=== PATIENT | male | born 1955 | race Caucasian/White ===

== ENCOUNTER 2016-08-07 17:53 | Emergency (ER) | payer MEDICARE, OTHER ==
[2016-08-07 18:53] LABS: BILIRUBIN NEGATIVE (NEGATIVE); BLOOD 3+ Ery/uL (NEGATIVE); CLARITY HAZY (CLEAR); COLOR AMBER (YELLOW); GLUCOSE (U) NORMAL (NORMAL); KETONE (U) NEGATIVE (NEGATIVE); LEUKOCYTES NEGATIVE Leu/uL (NEGATIVE); NITRITE NEGATIVE (NEGATIVE); PROTEIN 2+ mg/dL (NEGATIVE); SPECIFIC GRAVITY >=1.030 (1.001-1.030)
[2016-08-07 18:56] LABS: BASOPHIL 0.3 % (0-2); EOSINOPHIL 0.7 % (0-5); HGB 15.1 g/dl (13.2-18.0); LYMPHOCYTE 14.9 % (15-48); MCH 31.1 pg (25.0-31.0); MCHC 34.3 g/dL (32.0-36.0); MCV 90.5 fL (78.0-100.0); NEUTROPHIL 74.1 % (41-80); PLT 203 K/uL (150-400); RBC 4.86 M/uL (4.70-6.00); RDW 13.7 % (11.5-14.0)
[2016-08-07 18:58] LABS: BACTERIA TRACE; URINARY RBC TNTC
[2016-08-07 19:03] LABS: ALBUMIN 4.3 g/dL (3.4-4.8); BILIRUBIN - TOTAL 0.3 mg/dL (0.1-1.0); GLOBULIN (CALCULATION) 2.9 g/dL (2.2-4.2); POTASSIUM 3.9 mmol/L (3.5-5.1); TOTAL PROTEIN 7.2 g/dL (6.4-8.3)
== END 2016-08-07 20:14 | disposition home or self-care (01) ==
LOC: FER 17:53
PROVIDERS: Emergency Medicine
DX: N13.2 Hydronephrosis with renal and ureteral calculous obstruction (principal); D86.9 Sarcoidosis, unspecified; Z84.1 Family history of disorders of kidney and ureter; Z88.0 Allergy status to penicillin; Z79.52 Long term (current) use of systemic steroids; Z79.82 Long term (current) use of aspirin; Z79.51 Long term (current) use of inhaled steroids
CPT/HCPCS: 36415; 80053; 81001; 85025; J1885; J2405

== ENCOUNTER 2020-10-09 10:17 | Emergency (ER) | payer MEDICARE, OTHER ==
[2020-10-09 11:29] LABS: BASOPHIL 0.3 % (0-2); EOSINOPHIL 0.2 % (0-7); HCT 38.6 % (42.0-52.0); HGB 13.3 g/dl (13.2-18.0); LYMPHOCYTE 7.6 % (15-48); MCH 31.9 pg (25.0-31.0); MCHC 34.5 g/dL (32.0-36.0); MCV 92.6 fL (78.0-100.0); MONOCYTE 9.3 % (0-12); NEUTROPHIL 82.3 % (41-80); NRBC 0; PLT 151 K/uL (150-400); RBC 4.17 M/uL (4.70-6.00); RDW 13.2 % (11.5-14.0); WBC 9.5 K/uL (4.0-10.5)
[2020-10-09 11:53] LABS: BUN/CREAT RATIO (CALC) 22.1 RATIO; CREATININE 0.77 mg/dL (0.67-1.17); URIC ACID 4.9 mg/dL (3.5-7.2)
== END 2020-10-09 13:13 | disposition home or self-care (01) ==
LOC: FER 10:17
PROVIDERS: Emergency Medicine
DX: M19.032 Primary osteoarthritis, left wrist (principal); Z88.0 Allergy status to penicillin; Z79.899 Other long term (current) drug therapy; Z87.81 Personal history of (healed) traumatic fracture
CPT/HCPCS: 36415; 73110; 80048; 84550; 85025; 86038; 86140; 86431; 96372; J1885; J2930

== ENCOUNTER 2021-10-10 10:26 | Emergency (ER) | payer MEDICARE, OTHER ==
[~2021-10-10 10:26] MED LIST: ARNUITY ELLIP100 MCG PO; ASPIRIN EC81 MG PO; LIPITOR20 M1 PO; PREDNISONE5 MG PO; RECLAST 55 MG/100 M IJ; SINGULAIR10 MG PO; VENTOLIN HFA18 GM PO; VITAMIN B-121000 MC1 PO; VITAMIN D310 MC4 PO
[2021-10-10] MEDS ORDERED: NAPROXEN500 MG PO (13:18)
== END 2021-10-10 14:00 | disposition home or self-care (01) ==
LOC: FER 10:26
DX: M70.32 Other bursitis of elbow, left elbow (principal); I10 Essential (primary) hypertension; E78.5 Hyperlipidemia, unspecified; Z79.82 Long term (current) use of aspirin; Z88.0 Allergy status to penicillin; Z79.899 Other long term (current) drug therapy; W22.8XXA Striking against or struck by other objects, initial encounter; Y92.009 Unspecified place in unspecified non-institutional (private) residence as the place of occurrence of the external cause
CPT/HCPCS: 73080